=== PATIENT | female | born 1985 | race Caucasian/White ===

== ENCOUNTER 2016-06-18 21:51 | Emergency (ER) | payer MEDICAID ==
[~2016-06-18] VITALS: Ht 162.6 cm; Wt 81.8 kg
[~2016-06-18 21:51] MED LIST: ABILIFY2 MG; ADVAIR IH; ALBUTEROL0.09 MG/A1 IH; AMOXICILLIN 50500 MG PO; AMOXICILLIN 8751 TAB PO; ATIVAN 0.50.5 MG/TAB PO; ATIVAN0.5 MG PO; CATAPRES 0.1MG0.1 MG PO; CEFTIN500 MG PO; CEPHALEXIN500 M1 PO; COLACE 100100 MG/CAP PO; DOXYCYCLINE 10100 MG PO; DROSPIRENONE; FIORICET 325 MG1 TAB; LO LOESTRIN FE1 TAB PO; LORTAB 5/500 501 TAB PO; METRONIDAZOLE500 MG PO; MIDRIN CAPSULE1 CAP PO; MOTRIN 800800 MG/TAB PO; MOTRIN800 MG PO; MULTIPLE VITAMI1 TAB PO; MVI; NO HOME MEDICATIONS; NORCO 325 MG-51 TAB PO; PERCOCET 325 MG1 TAB PO; PHENERGAN 25 TA25 MG PO; PHENERGAN25 MG RC; PROAIR HFA0.09 MG/AC IH; SEPTRA DS 8001 TAB PO; ULTRAM 50MG TAB50 MG PO; UNABLE; VALTREX1 GM PO; VENTOLIN0.09 MG IH; VITAMINS; ZOFRAN 4MG T4 MG/TAB PO; ZOFRAN4 M1 PO; ZOFRAN4 MG PO; ZOLOFT100 MG PO; [UNRECOGNIZED DRUG - OTHER]
[2016-06-18 21:55] VITALS: TEMP 99.5
[2016-06-18 23:39] LABS: PH 5 (5-8); URINE APPEARANCE Turbid; URINE BACTERIA Rare /hpf; URINE BILIRUBIN Negative (NEGATIVE); URINE BLOOD 3+ (NEGATIVE); URINE COLOR Amber; URINE GLUCOSE Negative (NEGATIVE); URINE KETONE Negative (NEGATIVE); URINE RBC >50 /hpf; URINE UROBILINOGEN Negative (NEGATIVE); URINE WBC >50 /hpf
[2016-06-18] MEDS ORDERED: MACROBID 1100 MG/CAP PO (23:59)
[2016-06-19 00:14] VITALS: BP 150/91; PULSE 80
== END 2016-06-19 00:14 | disposition home or self-care (01) ==
LOC: COL.ER 21:51
PROVIDERS: Family Medicine
DX: N30.90 Cystitis, unspecified without hematuria (principal)

== ENCOUNTER 2016-12-19 19:04 | Emergency (ER) | payer SELFPAY ==
[~2016-12-19] VITALS: Ht 162.6 cm; Wt 87.7 kg
[~2016-12-19 19:04] MED LIST changes: +MACROBID 1100 MG/CAP PO
[2016-12-19 20:17] LABS: BASO % 0.2 % (0.0-2.0); EOS % 0.2 % (0-4.0); GRAN % 92.7 % (42.2-75.2); HEMATOCRIT 41.4 % (37.0-47.0); HEMOGLOBIN 13.5 g/dl (12.5-16.0); LYMPH # 0.3 (1.2-3.4); LYMPH % 5.8 % (20.0-51.0); MEAN CELL VOLUME 91 fl (80.0-100.0); MEAN CORPUSCULAR HEMOGLOBIN 30 pg (27.0-31.0); MEAN CORPUSCULAR HGB CONC 33 g/dl (33.0-37.0); MEAN PLATELET VOLUME 10.1 fl (7.4-10.4); MONO % 0.9 % (1.7-9.3); PLATELET COUNT 190 K/mm3 (130-400); RED BLOOD COUNT 4.53 M/mm3 (4.10-5.30); REDCELL DISTRIBUTION WIDTH-CV 12.4 % (11.5-14.5); WHITE BLOOD COUNT 4.3 K/mm3 (4.8-10.8)
[2016-12-19 20:22] VITALS: TEMP 98
[2016-12-19 20:27] LABS: PH 5 (5-8); SQUAMOUS EPITHELIAL 20-50 /hpf; URINE APPEARANCE Cloudy; URINE BACTERIA Occasional /hpf; URINE BILIRUBIN Negative (NEGATIVE); URINE BLOOD Negative (NEGATIVE); URINE COLOR Amber; URINE GLUCOSE Negative (NEGATIVE); URINE KETONE Negative (NEGATIVE); URINE UROBILINOGEN >=4.0 mg/dL (NEGATIVE)
[2016-12-19 20:28] LABS: URINE WBC >50 /hpf
[2016-12-19 20:28] LABS: BILIRUBIN,TOTAL 0.5 mg/dL (0.0-1.0); CREATININE, serum 1.08 mg/dL (0.52-1.25); TOTAL PROTEIN 6.5 gm/dL (6.4-8.2)
[2016-12-19 21:21] VITALS: BP 97/63; PULSE 100
== END 2016-12-19 21:52 | disposition home or self-care (01) ==
LOC: COL.ER 19:04
PROVIDERS: Emergency Medicine
DX: I10 Essential (primary) hypertension (principal); N39.0 Urinary tract infection, site not specified; F17.210 Nicotine dependence, cigarettes, uncomplicated; Z87.442 Personal history of urinary calculi
CPT/HCPCS: J0696; J1885; J2405; J7030

== ENCOUNTER 2016-12-20 18:29 | Emergency (ER) | payer SELFPAY ==
[~2016-12-20] VITALS: Ht 162.6 cm; Wt 87.7 kg
[2016-12-20 18:32] VITALS: BP 130/61; TEMP 99.9
[2016-12-20 19:14] VITALS: PULSE 92
== END 2016-12-20 19:15 | disposition home or self-care (01) ==
LOC: COL.ER 18:29
DX: R20.9 Unspecified disturbances of skin sensation (principal)

== ENCOUNTER 2019-11-11 14:24 | Emergency (ER) | payer SELFPAY ==
[~2019-11-11] VITALS: Ht 162.6 cm; Wt 97.7 kg
[2019-11-11 14:46] VITALS: BP 173/113; PULSE 95; TEMP 98.6
== END 2019-11-11 16:22 | disposition home or self-care (01) ==
LOC: COL.ER 14:24
DX: J40 Bronchitis, not specified as acute or chronic (principal); B34.9 Viral infection, unspecified; Z20.828 Contact with and (suspected) exposure to other viral communicable diseases

== ENCOUNTER 2022-03-22 22:14 | Emergency (ER) | payer SELFPAY ==
[~2022-03-22] VITALS: Ht 160 cm; Wt 90.9 kg
[2022-03-22 22:48] LABS: BASO # 0.1 K/mm3 (0.0-0.2); BASO % 0.3 % (0.0-2.0); EOS # 0.1 K/mm3 (0.0-0.7); EOS % 0.5 % (0.0-4.0); GRAN # 12.7 K/mm3 (1.4-6.5); GRAN % 83.8 % (42.2-75.2); HEMOGLOBIN 11.3 g/dl (12.5-16.0); LYMPH # 1.3 K/mm3 (1.2-3.4); LYMPH % 8.7 % (20.0-51.0); MEAN CELL VOLUME 86 fl (80.0-100.0); MEAN CORPUSCULAR HEMOGLOBIN 28 pg (27-31); MEAN CORPUSCULAR HGB CONC 33 g/dl (33.0-37.0); MEAN PLATELET VOLUME 9.8 fl (7.4-10.4); MONO % 6.3 % (1.7-9.3); PLATELET COUNT 326 K/mm3 (130-400); RED BLOOD COUNT 4.04 M/mm3 (4.10-5.30); REDCELL DISTRIBUTION WIDTH-CV 12.7 % (11.5-14.5)
[2022-03-22 22:51] LABS: HEMATOCRIT 34.7 % (37.0-47.0)
[2022-03-22 23:05] LABS: ALBUMIN 3.7 gm/dL (3.5-5.0); BILIRUBIN,TOTAL 0.4 mg/dL (0.2-1.2); CALCIUM 8.3 mg/dL (8.4-10.2); CREATININE, serum 1.17 mg/dL (0.57-1.11); POTASSIUM 3.3 mmol/L (3.5-4.5); TOTAL PROTEIN 6.5 gm/dL (6.2-8.1)
[2022-03-22] MEDS ORDERED: ZOFRAN ODT4 MG PO (23:54)
[2022-03-22] MEDS ORDERED: PREDNISONE20 MG PO (23:54)
[2022-03-23 00:15] VITALS: BP 114/72; PULSE 91; TEMP 97.4
== END 2022-03-23 00:15 | disposition home or self-care (01) ==
LOC: COL.ER 22:14
PROVIDERS: Emergency Medicine
DX: T78.40XA Allergy, unspecified, initial encounter (principal)
CPT/HCPCS: J2060; J2405; J2930; J7030

== ENCOUNTER 2023-08-29 19:44 | Emergency (ER) | payer BC ==
[~2023-08-29 19:44] MED LIST changes: +ADIPEX-P37.5 MG PO; +ADVIL PM 38 MG-1 TAB PO; +FLAGYL500 MG PO; +HYZAAR 25 MG-101 TAB PO; +MELATONIN5 M1 PO; +MONODOX100 PO; +PREDNISONE20 MG PO; +PRILOSEC 20MG20 MG PO; +PROBIOTIC ACID1 EAC3 PO; +PROZAC 20MG20 MG PO; +ROXICODONE 55 MG/TAB PO; +SYNTHROID0.05 MG/TA PO; +TOPAMAX 25MG25 M1 PO; +WELLBUTRIN SR150 M1 PO; +ZOFRAN ODT4 MG PO
[2023-08-29 20:01] VITALS: TEMP 97.5
[2023-08-29 20:41] LABS: BASO # 0.1 K/mm3 (0.0-0.2); BASO % 0.8 % (0.0-2.0); EOS % 0.7 % (0.0-4.0); GRAN # 3.7 K/mm3 (1.4-6.5); GRAN % 62.6 % (42.2-75.2); HEMATOCRIT 40.3 % (37.0-47.0); HEMOGLOBIN 13.6 g/dl (12.5-16.0); LYMPH # 1.7 K/mm3 (1.2-3.4); MEAN CELL VOLUME 91 fl (80.0-100.0); MEAN CORPUSCULAR HEMOGLOBIN 31 pg (27-31); MEAN CORPUSCULAR HGB CONC 34 g/dl (33.0-37.0); MEAN PLATELET VOLUME 9.2 fl (7.4-10.4); MONO # 0.5 K/mm3 (0.1-0.6); MONO % 7.6 % (1.7-9.3); PLATELET COUNT 300 K/mm3 (130-400); RED BLOOD COUNT 4.44 M/mm3 (4.10-5.30); REDCELL DISTRIBUTION WIDTH-CV 12.4 % (11.5-14.5)
[2023-08-29 21:03] LABS: ALBUMIN 4.2 g/dL (3.5-5.0); BILIRUBIN,TOTAL 0.7 mg/dL (0.2-1.2); CALCIUM 9.3 mg/dL (8.4-10.2); CREATININE, serum 0.99 mg/dL (0.57-1.11); TOTAL PROTEIN 6.9 g/dl (6.2-8.1)
[2023-08-29 21:07] LABS: POTASSIUM 2.9 mEq/L (3.5-4.5)
[2023-08-29 21:23] LABS: TROPONIN-I 0.015 ng/mL (0.00-0.033); TSH w REFLEX 0.798 uIU/mL (0.350-4.940)
[2023-08-29 22:15] VITALS: BP 118/71; PULSE 88
== END 2023-08-29 22:15 | disposition home or self-care (01) ==
LOC: COL.ER 19:44
PROVIDERS: Emergency Medicine
DX: R07.89 Other chest pain (principal); R53.83 Other fatigue; R53.81 Other malaise; M79.621 Pain in right upper arm; M54.2 Cervicalgia; I10 Essential (primary) hypertension; F90.9 Attention-deficit hyperactivity disorder, unspecified type; Z79.899 Other long term (current) drug therapy